=== PATIENT | male | born 1990 | race Caucasian/White ===

== ENCOUNTER 2021-12-15 17:26 | Emergency (ER) | payer OTHER, SELFPAY ==
[~2021-12-15 17:26] MED LIST: Iopamidol 370 76% 100 ML VIAL ONE
[2021-12-15 17:52] LABS: Hemoglobin 11.6 g/dL (14.0-18.0); Red Blood Cell (RBC) Count 3.32 mill/uL (4.70-6.10); White Blood Cell (WBC) Count 11.2 thou/uL (4.8-10.8)
[2021-12-15 17:53] LABS: Manual Diff?? NO; Mean Corpuscular HGB CONC 33.2 g/dL (32.0-36.0); Mean Platelet Volume 9.3 fL (7.4-10.4); Platelet Count 238 thou/uL (130-400); RBC Distribution Width 11.4 % (11.5-14.5)
[2021-12-15 17:59] LABS: #Basophils 0.1 thou/uL (0.0-0.2); #Eosinphils 0.1 thou/uL (0.0-0.7); #Lymphocytes 1.9 thou/uL (1.20-3.40); #Neutrophils 8.1 thou/uL (1.40-6.50); %Basophils 0.8 % (0.0-1.0); %Monocytes 8.6 % (0.0-10.0); %Neutrophils 72.6 % (42.0-75.0)
[2021-12-15 18:02] LABS: ALT (SGPT) 61 U/L (8-55); AST (SGOT) 140 U/L (5-34); Albumin 3.5 g/dL (3.5-5.0); Alcohol Less than 10 mg/dL (Less than 10); Alkaline Phosphatase 192 U/L (40-110); Anion Gap 22 mmol/L (10-20); BUN (Urea Nitrogen) 16 mg/dL (8.9-20.6); Bilirubin, Total 2.2 mg/dL (0.2-1.2); Calc. Creatinine Clearance 0 mL/min (70-130); Carbon Dioxide 25 mmol/L (22-29); Chloride 82 mmol/L (98-107); Estimated GFR 54; Globulin 3.5 g/dL (2.4-3.5); Glucose 121 mg/dL (70-105); Lipase 58 U/L (8-78); Sodium 125 mmol/L (136-145)
[2021-12-15] MEDS ORDERED: Lorazepam 2 MG/ML VIAL ONE (18:45)
[2021-12-15 19:31] LABS: Bilirubin Negative (Negative); Blood, Urine Negative (Negative); Clarity Clear (Clear); Glucose, Urine (Dipstick) Negative (Negative); Ketone, Urine Negative (Negative); Leukocyte Negative (Negative); Nitrite Negative (Negative); Protein, Urine (Dipstick) Negative (Neg-Trace); pH, Urine 6.5 (5.0-9.0)
[2021-12-15] MEDS ORDERED: Ketorolac Tromethamine 30 MG/ML VIAL ONE (19:31)
[2021-12-15] MEDS ORDERED: Sodium Chloride 0.9% 1,000 ML ONE (19:31)
[2021-12-15 20:28] LABS: Amphetamine Not Detected (NotDetected); Barbiturates Screen Not Detected (NotDetected); Benzodiazepine Screen Not Detected (NotDetected); Cocaine Metabolite Screen Not Detected (NotDetected); Medtox Control Line Valid? VALID (VALID); Methadone Not Detected (NotDetected); Methamphetamine Not Detected (NotDetected); Opiate Screen Not Detected (NotDetected); Oxycodone Screen Not Detected (NotDetected); Phencyclidine (PCP) Not Detected (NotDetected); THC/Cannabinoid Screen Not Detected (NotDetected); Tricyclic Screen Not Detected (NotDetected)
== END 2021-12-15 22:30 | disposition home or self-care (01) ==
LOC: NAV ERS 17:26
DX: S20.211A Contusion of right front wall of thorax, initial encounter (principal); E86.0 Dehydration; E87.1 Hypo-osmolality and hyponatremia; R10.816 Epigastric abdominal tenderness; I10 Essential (primary) hypertension; F17.210 Nicotine dependence, cigarettes, uncomplicated; Z79.899 Other long term (current) drug therapy; V43.52XA Car driver injured in collision with other type car in traffic accident, initial encounter
CPT/HCPCS: 71260; 72125; 74177; 80053; 80306; 80307; 81003; 83690; 85025; 93005; 96361; 96374; 96375; G0390; J1885; J2060; J7050; Q9967